=== PATIENT | female | born 1985 | race Caucasian/White ===

== ENCOUNTER 2017-08-24 19:37 | Inpatient (IN) | payer BC ==
[~2017-08-24 19:37] MED LIST: HYDROcodone/Acetaminophen 5/325 mg Tablet PO PRN; Ibuprofen 800 MG TAB PO PRN; LR / Pitocin 40 units/1000 ml 1,000 ML IV PRN; Lidocaine 1% (PF) 30 ML VIAL SC PRN; Misoprostol 200 MCG TAB PR PRN; Ondansetron HCl/PF 4 MG/2 ML Vial IVP PRN; Promethazine HCl 25 MG/ML VIAL IM PRN; Zolpidem Tartrate 5 MG TAB PO PRN
[2017-08-24 20:15] VITALS: BMI 41.8
[2017-08-24] MEDS: Lactated Ringer's 1,000 ML IV SCH (20:40)
[2017-08-24] MEDS: Misoprostol 100 MCG TAB VAG SCH ×2 (20:45→23:50)
[2017-08-24 21:15] LABS: Hematocrit 33.8 % (36.0-47.0); Mean Platelet Volume 9.6 fL (7.4-10.4); Red Blood Cell (RBC) Count 3.62 mill/uL (4.20-5.40); White Blood Cell (WBC) Count 10.1 thou/uL (4.8-10.8)
[2017-08-24 21:58] LABS: ALT (SGPT) 17 U/L (8-55); AST (SGOT) 15 U/L (5-34); Alkaline Phosphatase 198 U/L (40-150); Anion Gap 15 mmol/L (10-20); BUN (Urea Nitrogen) 12 mg/dL (7.0-18.7); Bilirubin, Total 0.4 mg/dL (0.2-1.2); Calc. Creatinine Clearance 189 mL/min (70-130); Calcium 8.6 mg/dL (7.8-10.44); Carbon Dioxide 19 mmol/L (22-29); Chloride 106 mmol/L (98-107); Estimated GFR-MDRD 90; Protein, Total 5.3 g/dL (6.0-8.3)
[2017-08-25] MEDS: Misoprostol 100 MCG TAB VAG SCH ×3 (05:15→23:21)
[2017-08-25] MEDS ORDERED: Fentanyl 100 MCG/2 ML VIAL ONE (08:41)
[2017-08-25] MEDS ORDERED: Fentanyl 4 mcg/Marc 0.1% Cadd 100 ML ONE (08:44)
[2017-08-25] MEDS: Lactated Ringer's 1,000 ML IV SCH ×3 (09:00→19:41)
[2017-08-25] MEDS: LR 500 ML/Oxytocin 10 units 500 ML IV SCH ×2 (09:30→19:41)
[2017-08-25] MEDS ORDERED: Eucerin (Mineral Oil/Petrolatum,White) 30 gm Jar TOP PRN (14:14)
[2017-08-25] MEDS ORDERED: Naloxone HCl 0.4 mg/ml Vial IVP PRN ×2 (14:14)
[2017-08-25] MEDS ORDERED: Acetaminophen 325 MG TAB PO PRN (14:14)
[2017-08-25] MEDS ORDERED: diphenhydrAMINE HCl 50 MG/ML 1 ML VIAL IVP PRN (14:14)
[2017-08-25] MEDS ORDERED: Ondansetron HCl/PF 4 MG/2 ML Vial IVP PRN (14:14)
[2017-08-25] MEDS ORDERED: Lactated Ringer's 500 ML IV PRN (14:14)
[2017-08-25] MEDS ORDERED: ePHEDrine/0.9% NaCl/PF SYRINGE 50 mg/10 ml SLOW IVP PRN (14:14)
[2017-08-25] MEDS ORDERED: Promethazine HCl 25 MG/ML VIAL IM PRN (14:14)
[2017-08-25] MEDS ORDERED: Communication Order-Pharmacy FS SCH (14:15)
[2017-08-25] MEDS: Fentanyl 4mcg/Marcaine 0.1% Cassette 100 ML EPIDURAL SCH ×2 (15:47→19:40)
[2017-08-25] MEDS ORDERED: Bisacodyl 10 MG SUPP PR PRN (23:44)
[2017-08-25] MEDS ORDERED: diphenhydrAMINE HCl 25 MG CAP PO PRN (23:44)
[2017-08-25] MEDS ORDERED: Lanolin Ointment 7 GM TUBE TOP PRN (23:44)
[2017-08-25] MEDS ORDERED: Benzocaine/Menthol 20-0.5% 60 ML CAN TOP PRN (23:44)
[2017-08-25] MEDS ORDERED: Preparation H Ointment 28 GM TUBE PR PRN (23:44)
[2017-08-25] MEDS ORDERED: LR / Pitocin 40 units/1000 ml 1,000 ML IV SCH (23:45)
[2017-08-26] MEDS: traMADol HCl 50 MG TAB PO PRN ×3 (01:43→21:21)
[2017-08-26] MEDS: Misoprostol 100 MCG TAB VAG SCH (01:43)
[2017-08-26] MEDS: Ibuprofen 800 MG TAB PO SCH ×3 (04:59→20:30)
--- NOTE | 2017-08-26 07:30 | PDOC.PP ---
Post Progress Note Post Day #: 1 Flatus: yes Ambulation: yes Vital Signs (12 hours) Temp Pulse Resp BP Pulse Ox 08/26/17 04:00 98.5 F 95 18 08/26/17 03:45 98.5 F 95 18 126/58 L 08/26/17 03:00 98.0 F 98 16 126/51 L 08/26/17 02:00 98.0 F 100 16 130/64 08/25/17 19:42 98.4 F 89 22 H 99 Weight Weight 244 lb - Physical Examination General: NAD Cardiovascular: no m/r/g, RRR Respiratory: clear to ausculation bilateral Abdominal: + bowel sounds, lochia, no distention, appropriately TTP Result Diagrams: 08/24/17 20:35 08/24/17 20:36 Additional Labs: Post Labs Blood Type O NEGATIVE 08/24/17 20:35 Hep Bs Antigen Non-Reactive S/CO (NonReactive) 08/24/17 20:35 - Assessment/Plan post 0-1 routine care. d/c andrew mejia am. anticipate d/c 08/27.
[2017-08-26] MEDS: Ferrous Sulfate 325 MG TAB PO SCH ×2 (07:42→15:15)
[2017-08-26] MEDS: Prenatal Vitamin 1 TAB PO SCH (07:43)
[2017-08-26] MEDS: Docusate (Surfak) 240 MG CAP PO SCH ×2 (07:44→20:30)
[2017-08-26] MEDS ORDERED: Adacel (T-DAP) 0.5 ML VIAL IM ONE (09:00)
[2017-08-26] MEDS: Milk Of Magnesia 30 ML UDCUP PO PRN (20:30)
[2017-08-27] MEDS: Ibuprofen 800 MG TAB PO SCH ×3 (05:08→21:04)
[2017-08-27] MEDS: traMADol HCl 50 MG TAB PO PRN ×3 (05:08→17:43)
--- NOTE | 2017-08-27 08:16 | PDOC.PP ---
Post Progress Note Post Day #: 2-baby in NICU for low blood sugars PO intake tolerated: yes Flatus: yes Ambulation: yes Vital Signs (12 hours) Temp Pulse Resp BP 08/27/17 00:00 97.7 F 89 20 106/54 L Weight Weight 244 lb - Physical Examination General: NAD Cardiovascular: no m/r/g, RRR Respiratory: clear to ausculation bilateral Abdominal: + bowel sounds, lochia, no distention, appropriately TTP Result Diagrams: 08/24/17 20:35 08/24/17 20:36 Additional Labs: Post Labs Blood Type O NEGATIVE 08/24/17 20:35 Hep Bs Antigen Non-Reactive S/CO (NonReactive) 08/24/17 20:35 - Assessment/Plan very sore in vagina. Hurts to urinate. hemorrhoids hurt. sitz baths/local perineal care d/c in am
[2017-08-27] MEDS: Ferrous Sulfate 325 MG TAB PO SCH ×2 (08:49→17:10)
[2017-08-27] MEDS: Docusate (Surfak) 240 MG CAP PO SCH ×2 (08:50→21:04)
[2017-08-27] MEDS: Prenatal Vitamin 1 TAB PO SCH (08:50)
[2017-08-27] MEDS: Milk Of Magnesia 30 ML UDCUP PO PRN (21:04)
[2017-08-28] MEDS: traMADol HCl 50 MG TAB PO PRN ×3 (00:15→13:00)
[2017-08-28 01:15] VITALS: TEMP 98.2
[2017-08-28] MEDS: Ibuprofen 800 MG TAB PO SCH ×2 (06:13→15:01)
--- NOTE | 2017-08-28 08:18 | PDOC.PP ---
Post Progress Note Post Day #: 3. baby out of nicu. feeling better today PO intake tolerated: yes Flatus: yes Ambulation: yes Vital Signs (12 hours) Temp Pulse Resp BP 08/28/17 00:00 98.2 F 92 20 126/78 Weight Weight 244 lb - Physical Examination General: NAD Cardiovascular: no m/r/g, RRR Respiratory: clear to ausculation bilateral Abdominal: + bowel sounds, lochia, no distention, appropriately TTP Result Diagrams: 08/24/17 20:35 08/24/17 20:36 Additional Labs: Post Labs Blood Type O NEGATIVE 08/24/17 20:35 Hep Bs Antigen Non-Reactive S/CO (NonReactive) 08/24/17 20:35 - Assessment/Plan post day 3 perineal pain improved d/c home f/u 6 weeks
[2017-08-28] MEDS: Docusate (Surfak) 240 MG CAP PO SCH (08:39)
[2017-08-28] MEDS: Prenatal Vitamin 1 TAB PO SCH (08:39)
[2017-08-28] MEDS: Ferrous Sulfate 325 MG TAB PO SCH (08:39)
[2017-08-28 08:51] VITALS: BP 133/82
[2017-08-28] MEDS ORDERED: Bupivacaine 0.25% 10 ML VIAL ONE (14:41)
[2017-08-28] MEDS ORDERED: Lidocaine 2% PF 10 ML AMP (For Epidural Use) ONE (14:41)
== END 2017-08-28 16:15 | disposition home or self-care (01) | DRG 775 ==
LOC: L&D 19:37 → 3SW 08-26 01:48
PROVIDERS: ADMIT Obstetrics & Gynecology; ATTEND Obstetrics & Gynecology
PROC: 10D07Z6 Extraction of Products of Conception, Vacuum, Via Natural or Artificial Opening (ICD-10-PCS; principal; 2017-08-25)
PROC: 0KQM0ZZ Repair Perineum Muscle, Open Approach (ICD-10-PCS; 2017-08-25)
PROC: 10907ZC Drainage of Amniotic Fluid, Therapeutic from Products of Conception, Via Natural or Artificial Opening (ICD-10-PCS; 2017-08-25)
PROC: 3E0P7VZ Introduction of Hormone into Female Reproductive, Via Natural or Artificial Opening (ICD-10-PCS; 2017-08-25)
DX: O63.1 Prolonged second stage (of labor) (principal); E03.9 Hypothyroidism, unspecified; O69.1XX0 Labor and delivery complicated by cord around neck, with compression, not applicable or unspecified; O70.1 Second degree perineal laceration during delivery; O75.81 Maternal exhaustion complicating labor and delivery; Z3A.39 39 weeks gestation of pregnancy; Z37.0 Single live birth; O99.284 Endocrine, nutritional and metabolic diseases complicating childbirth
CPT/HCPCS: 80053; 81003; 85027; 86780; 87340; J2001; J2405; J3010; J7120; S0020

== ENCOUNTER 2018-11-25 14:59 | Day surgery (SDC) | payer BC ==
[2018-11-25 15:36] VITALS: BP 127/77; TEMP 98.8
[2018-11-25 15:37] VITALS: BMI 38.4
--- NOTE | 2018-11-25 16:14 | PDOC.LDHP ---
Labor and Delivery H&P Chief complaint: other (Right back discomfort at 23 weeks 1 day) HPI: [facility] of [facility] Location: Triage EGA: 23 weeks 1 day HPI: 33 yo (operative vaginal delivery) now at 23 weeks 1 day with lower right back pain. No VB, no LOF, good FM. Some frequency of urination, no real dysuria. No N/V. review of Systems: Complete ROS completed and as per HPI Current gestational age (weeks): 23 (1 day) Due date: 03/23/19 Dating criteria: last menstrual period Grav: 3 Para: 1 OB History Details: Operative vaginal delivery Current complications: none Abnormal US findings: No Current medications: pre- vitamins Previous surgical history: other (Rt ear, T&A) Allergies/Adverse Reactions: Allergies Allergy/AdvReac Type Severity Reaction Status Date / Time No Known Allergies Allergy Verified 08/24/17 20:16 - Physical Exam Vital signs reviewed and normal: yes (afebrile; BP 125/77) General: NAD Heart: RRR Lungs: CTAB Abdomen: gravid Extremeties: no edema Maben contractions every: FHTs by doppler 140s, no contractions noted - Assessment Urinary fequency and possible right lower back pain...eval for stone or pyelo ( no overt CVAT, and afebrile): Plan: 1. Cath UA 2. IVFs 3. CBC and CMP 4. I have ordered a rigth renal sono with bladder jet eval 5. No evidence PTL at this time Follow labs and eval again after tests return
[2018-11-25] MEDS ORDERED: Lactated Ringer's 1,000 ML IV SCH (16:15)
[2018-11-25 16:39] LABS: #Lymphocytes 1.1 thou/uL (1.20-3.40); #Monocytes 0.4 thou/uL (0.11-0.59); #Neutrophils 9.4 thou/uL (1.40-6.50); %Basophils 0.1 % (0.0-1.0); %Eosinophils 0.4 % (0.0-10.0); %Lymphocytes 10.3 % (21.0-51.0); %Monocytes 3.6 % (0.0-10.0); %Neutrophils 85.6 % (42.0-75.0); Hemoglobin 12.6 g/dL (12.0-16.0); Mean Corpuscular HGB CONC 35.5 g/dL (32.0-36.0); Mean Corpuscular Hemoglobin 32.7 pg (27.0-31.0); Mean Corpuscular Volume 92.2 fL (78.0-98.0); Mean Platelet Volume 9.7 fL (7.4-10.4); Platelet Count 146 thou/uL (130-400); RBC Distribution Width 12.6 % (11.5-14.5); Red Blood Cell (RBC) Count 3.85 mill/uL (4.20-5.40); White Blood Cell (WBC) Count 10.9 thou/uL (4.8-10.8)
[2018-11-25 16:39] LABS: Bilirubin Negative (Negative); Blood, Urine Large (Negative); Clarity CLEAR (Clear); Glucose, Urine (Dipstick) Negative (Negative); Leukocyte Trace (Negative); Nitrite Negative (Negative); Protein, Urine (Dipstick) Negative (Neg-Trace); Specific Gravity, Urine 1.005 (1.002-1.036); Urobilinogen 0.2 mg/dL (0.2-1.0)
[2018-11-25 16:41] LABS: Bacteria/HPF None Seen HPF (None Seen); Hyaline Casts/LPF 0-3 HYALINE CAST LPF (0-3 Hyaline); Pathc Cast-AUWi Flag 0.87 (0-2.49); Squamous Epithelial 0-3 HPF (0-3); WBC/HPF 0-3 HPF (0-3)
[2018-11-25 16:50] LABS: Renal Epithelial None Seen HPF (0-3); Transitional Epithelial NONE SEEN HPF (0-3); Urine Culture Reflex No No
[2018-11-25 16:59] LABS: ALT (SGPT) 15 U/L (8-55); AST (SGOT) 20 U/L (5-34); Albumin 3.7 g/dL (3.5-5.0); Alkaline Phosphatase 67 U/L (40-150); Anion Gap 16 mmol/L (10-20); BUN (Urea Nitrogen) 5 mg/dL (7.0-18.7); Bilirubin, Total 0.3 mg/dL (0.2-1.2); Calc. Creatinine Clearance 182 mL/min (70-130); Carbon Dioxide 18 mmol/L (22-29); Chloride 106 mmol/L (98-107); Estimated GFR-MDRD Greater than 90; Globulin 2.3 g/dL (2.4-3.5); Glucose 107 mg/dL (70-105); Potassium 3.6 mmol/L (3.5-5.1); Sodium 136 mmol/L (136-145)
--- NOTE | 2018-11-25 17:38 | PDOC.EVN ---
Event Note - Event Note Event Note: UA with large blood in urine, CBC and CMP ok No evidence of TUT except for the blood Sono was ok with jet noted Now feels better after IVF, maybe was small stone. No evidence UTI...ok for outpatient care with macrobid due to frequency and large blood
--- NOTE | 2018-11-25 18:19 | ULT ---
RENAL ULTRASOUND WITH AVILEZ SCALE AND DOPPLER COLOR FLOW IMAGIN11/25/18 INDICATION: patient with right flank pain. FINDINGS: Sonographic evaluation of the kidneys performed which reveals no evidence of overt hydronephrosis. No discrete, shadowing renal calculus is seen. The urinary bladder is grossly unremarkable. Doppler color flow utilized for evaluation of ureteral jets which are demonstrated. IMPRESSION: No overt hydronephrosis of either kidney. POS: [facility]
== END 2018-11-25 17:55 | disposition home or self-care (01) ==
LOC: ERS 14:59 → L&D/OP 15:07
PROVIDERS: ATTEND Obstetrics & Gynecology
DX: O99.89 Other specified diseases and conditions complicating pregnancy, childbirth and the puerperium (principal); M54.5 Low back pain; R31.9 Hematuria, unspecified; Z3A.23 23 weeks gestation of pregnancy; Z79.899 Other long term (current) drug therapy
CPT/HCPCS: 51701; 76770; 80053; 81001; 85025; 87086; 96360; 96361; 99282; A4353

== ENCOUNTER 2019-03-20 19:42 | Inpatient (IN) | payer BC ==
--- NOTE | 2019-03-20 19:54 | PDOC.FPROB ---
FMR OB H&P: HPI - History of Present Illness Chief Complaint: contractions History of Present Illness: 34 yo at 39.4 wk by LMP/1T US. Presents with CC of CTx that started at 0800 today. Have become more frequent and painful over the course of the day. Now occurring every 2-3 min. No LOF or fever/chills. Was 1 cm dilated in office last week. Primary Care Physician: Dr. Briones FMR OB H&P: Current - Care : 2 Para: 1001 Gestational age: 39.4 wk Due date: 03/23/19 Dating Criteria: LMP/1T US. Course/Complications: well controlled hypothyroidism. - OB Labs Blood type: O RH: negative Antibody Screen: negative HIV: negative RPR: negative HepBsAg: negative Rubella: immune Quad screen: negative Urine drug screen: not done Gonorrhea: negative Chlamydia: negative Pap Smear: performed 01/15/19. no records available. 1 hour gtt: 78 GBS: negative H&H: 12.9/39.1 Platelets: 131 - First Trimester Ultrasound First trimester: normal per documentation but no report available. - Anatomy Survey Anatomy survey: normal per documentation but no report available. FMR OB H&P: History - Past Medical History PMH: hypothyroidism, asthma, cold sores - OB History OB History: prior vacuum assisted vaginal delivery at 39 wk. - MATHEMATICS LECTURER History MATHEMATICS LECTURER History: none. - Surgical History Sx History: laparascopy, tonsillectomy, ACL repair - Social History Social History: no E/T/D - Family History Family History: unremarkable FMR OB H&P: Medications - Current Home Medications: Medication Instructions Recorded Confirmed Type Levothyroxine Sodium 75 mcg PO DAILY 08/24/17 03/20/19 History 21/Iron Fu/Folic Acid 1 tablet PO DAILY 08/24/17 03/20/19 History [ Complete Caplet] Albuterol Sulfate [Ventolin HFA] 2 puff INH Q6HR PRN 11/25/18 03/20/19 History Beclomethasone Dipropionate [Qvar 2 puff INH BID 11/25/18 03/20/19 History Redihaler] Allergies/Adverse Reactions: Allergies Allergy/AdvReac Type Severity Reaction Status Date / Time shellfish derived Allergy Verified 03/20/19 20:36 FMR OB H&P: ROS - Review of Systems General: denies: fever/chills, weight/appetite/sleep changes Eyes: denies: eye pain, vision changes ENT: denies: nasal congestion, ear pain, trouble with swallowing Cardiovascular: denies: chest pain, orthopnea Respiratory: denies: cough, congestion Gastrointestinal: denies: abdominal pain, diarrhea, constipation Genitourinary (Female): reports: contractions. denies: incontinence, dysuria Musculoskeletal: denies: pain, stiffness Neurologic: denies: numbness, headache Integumentary: denies: itching, other Breast: denies: lumps, bumps Endocrine: denies: cold intolerance, heat intolerance Hematologic/Lymphatic: denies: prolonged or excessive bleeding, enlarged lymph nodes Psychological: denies: depression, anxiety FMR OB H&P: Vital Signs - Maternal Vital signs: BP 126/71, Pulse 88, resp 20, T 98.6F. - Heart Tones Baseline: 140 Variability: moderate Acceleration: present Deceleration: absent Category: category 1 Iaeger contractions every: 2-3 min. FMR OB H&P: Physical Exam - Physical Exam General: awake, alert and oriented, other (painful contractions.) HEENT: normocephalic and atraumatic, MMM, conjunctiva clear Neck: FROM, trachea midline Heart: RRR, normal S1/S2 General: CTAB, no respiratory distress Abdomen: soft, gravid, non-tender Musculoskeletal: normal gait and station, no atrophy Neurological: no tremor, no focal deficit Skin: no rash, good tugor Lymphatic: no unusual bruising or bleeding, no purpura Psychiatric: intact recent and remote memory, good judgement and insight - Pelvic Exam Vulva: normal hair distribution, no discharge Cervix: no masses SVE: /-2 Membranes: intact - arom by dr palafox clear fluid Presentation: vertex Estimated Weight: 7 lbs FMR OB H&P: Results - Labs Lab results: pending. FMR OB H&P: A/P - Problem List (1) Current Visit: Yes Status: Acute (2) Gestational thrombocytopenia without hemorrhage in third trimester Current Visit: Yes Status: Acute Code(s): O99.113 - OTH DIS OF BLD/BLD-FORM ORG/IMMUN MECHNSM COMP PREG, 3RD TRI; D69.6 - THROMBOCYTOPENIA, UNSPECIFIED (3) Hypothyroidism affecting in third trimester Current Visit: Yes Status: Acute Code(s): O99.283 - ENDO, NUTRITIONAL AND METAB DISEASES COMP PREG, THIRD TRI; E03.9 - HYPOTHYROIDISM, UNSPECIFIED (4) Rh negative status during in third trimester Current Visit: Yes Status: Acute Code(s): O26.893 - OTH RELATED CONDITIONS, THIRD TRIMESTER; Z67.91 - UNSPECIFIED BLOOD TYPE, RH NEGATIVE Disposition: - Latent labor: will admit to L&D for expectant management. Epidural upon patient request. Routine labs ordered. Pitocin for augmentation if needed - GBS negative - Gestational thrombocytopenia: mild, repeat CBC - RH negative: Rhogam - Hypothyoridism: well controlled outpatient, continue synthroid. Discussion: Date/Time: 03/20/191951 This H&P was discussed with Dr. Palafox who agree with the above documentation and plan.
[2019-03-20] MEDS ORDERED: Ibuprofen 800 MG TAB PO PRN (20:18)
[2019-03-20] MEDS ORDERED: Lidocaine 1% (PF) 30 ML VIAL SC PRN ×2 (20:18→20:55)
[2019-03-20] MEDS ORDERED: Promethazine HCl 25 MG/ML VIAL IM PRN ×2 (20:18→21:41)
[2019-03-20] MEDS ORDERED: NS / Oxytocin 40 units/1000ml 1,000 ML IV PRN ×2 (20:18→20:55)
[2019-03-20] MEDS ORDERED: Acetaminophen 500 MG TAB PO PRN (20:18)
[2019-03-20] MEDS ORDERED: Diphenoxylate HCl/Atropine Tablet PO PRN (20:18)
[2019-03-20] MEDS ORDERED: Carboprost 250 MCG/ML AMP IM PRN (20:18)
[2019-03-20] MEDS ORDERED: Ondansetron PF 4 MG/2 ML Vial IVP PRN ×2 (20:18→21:41)
[2019-03-20] MEDS ORDERED: Methylergonovine 0.2 MG/ML VIAL IM PRN (20:18)
[2019-03-20] MEDS ORDERED: Docusate 100 MG CAP PO PRN (20:18)
[2019-03-20] MEDS ORDERED: Misoprostol 200 MCG TAB PR PRN (20:18)
[2019-03-20] MEDS ORDERED: Butorphanol Tartrate 1 MG/ML VIAL SLOW IVP PRN (20:18)
[2019-03-20] MEDS ORDERED: HYDROcodone/Acetaminophen 5/325 mg Tablet PO PRN ×2 (20:18)
[2019-03-20 20:21] VITALS: BMI 40.1
[2019-03-20] MEDS ORDERED: Lactated Ringer's 1,000 ML IV SCH ×2 (20:30)
[2019-03-20] MEDS ORDERED: Fentanyl 4 mcg/Bup 0.1% Cadd 100 ML ONE (20:42)
[2019-03-20 20:49] LABS: Hemoglobin 13.6 g/dL (12.0-16.0); Mean Corpuscular Hemoglobin 32.3 pg (27.0-31.0); Mean Corpuscular Volume 92.3 fL (78.0-98.0); Platelet Count 138 thou/uL (130-400); RBC Distribution Width 12.2 % (11.5-14.5); Red Blood Cell (RBC) Count 4.21 mill/uL (4.20-5.40); White Blood Cell (WBC) Count 10.8 thou/uL (4.8-10.8)
[2019-03-20] MEDS ORDERED: NS w/ Oxytocin 10 units 500 ML IV SCH (21:00)
[2019-03-20 21:23] LABS: Syphilis Antibody Nonreactive (Nonreactive); Syphilis Antibody Index 0.01 S/CO (<1.00 Non-Reactive)
[2019-03-20] MEDS ORDERED: ePHEDrine/0.9% NaCl/PF SYRINGE 50 mg/10 ml SLOW IVP PRN (21:41)
[2019-03-20] MEDS ORDERED: diphenhydrAMINE 50 MG/ML VIAL IVP PRN (21:41)
[2019-03-20] MEDS ORDERED: Eucerin (Mineral Oil/Petrolatum,White) 30 gm Jar TOP PRN (21:41)
[2019-03-20] MEDS ORDERED: Naloxone HCl 0.4 mg/ml Vial IVP PRN ×2 (21:41)
[2019-03-20] MEDS ORDERED: Acetaminophen 325 MG TAB PO PRN (21:41)
[2019-03-20] MEDS ORDERED: Lactated Ringer's 500 ML IV PRN (21:41)
[2019-03-20] MEDS ORDERED: Communication Order-Pharmacy FS SCH (21:45)
[2019-03-20] MEDS ORDERED: Fentanyl 4 mcg/Bupivacaine 0.1% Cassette 100 ML EPIDURAL SCH (21:45)
[2019-03-20 23:05] LABS: HBSAg Index 0.43 S/CO (0-0.99); Hep B Surf Ag Non-Reactive S/CO (NonReactive)
[2019-03-21] MEDS ORDERED: Lidocaine 1% (PF) 30 ML VIAL ONE (02:07)
[2019-03-21] MEDS ORDERED: NS / Oxytocin 40 units/1000ml 1,000 ML ONE (02:07)
[2019-03-21] MEDS ORDERED: Preparation H Ointment 28 GM TUBE PR PRN (02:27)
[2019-03-21] MEDS ORDERED: Milk Of Magnesia 30 ML UDCUP PO PRN (02:27)
[2019-03-21] MEDS ORDERED: traMADol HCl 50 MG TAB PO PRN (02:27)
[2019-03-21] MEDS ORDERED: diphenhydrAMINE 25 MG CAP PO PRN (02:27)
[2019-03-21] MEDS ORDERED: Benzocaine-Menthol 82.5 ML CAN TOP PRN (02:27)
[2019-03-21] MEDS ORDERED: Bisacodyl 10 MG SUPP PR PRN (02:27)
[2019-03-21] MEDS ORDERED: Lanolin Ointment 7 GM TUBE TOP PRN (02:27)
[2019-03-21] MEDS ORDERED: NS / Oxytocin 40 units/1000ml 1,000 ML IV SCH (02:30)
--- NOTE | 2019-03-21 02:35 | PDOC.OPDEL ---
OB Operative/Delivery Note Delivery Dr/Surgeon: Anali Pre-Delivery Diagnosis: active labor Procedure/Post Delivery Dx: spontaneous vaginal delivery Weeks gestation: 39 Anesthesia: epidural - Findings A Sex: female Weight: 6 lb 1 oz - 1 min: 7 - 5 min: 8 - Additional Findings/Plan Placenta delivered: spontaneous Repaired Obstetrical Laceration: 2nd degree Estimated blood loss: 100ml Compilations/Other Findings: Nuchal cord x 1 --tight. Clamped and cut Post delivery plan: routine recovery
[2019-03-21] MEDS: Ibuprofen 800 MG TAB PO SCH ×3 (06:21→21:36)
[2019-03-21] MEDS: traMADol HCl 50 MG TAB PO PRN ×2 (06:52→19:01)
[2019-03-21] MEDS: Mometasone 100 MCG HFA INHALER INH SCH ×2 (07:30→19:56)
[2019-03-21] MEDS ORDERED: Adacel (T-DAP) 0.5 ML SYRINGE IM ONE (09:00)
[2019-03-21] MEDS: Docusate Calcium (SURFAK) 240 MG CAP PO SCH ×2 (10:13→21:35)
[2019-03-21] MEDS: Prenatal Vitamin 1 TAB PO SCH (10:13)
[2019-03-21] MEDS: Ferrous Sulfate 325 MG TAB PO SCH ×2 (10:15→19:03)
[2019-03-21] MEDS ORDERED: Bupivacaine HCl 0.25%/Epi 0.0005/PF 10 ML VIAL FS ONE (11:11)
[2019-03-22] MEDS: traMADol HCl 50 MG TAB PO PRN ×4 (00:34→21:11)
[2019-03-22] MEDS: Ibuprofen 800 MG TAB PO SCH ×3 (05:35→21:10)
[2019-03-22] MEDS: Mometasone 100 MCG HFA INHALER INH SCH ×2 (07:36→19:15)
--- NOTE | 2019-03-22 07:53 | PDOC.PP ---
Post Progress Note Post Day #: 2 PO intake tolerated: yes Flatus: yes Ambulation: yes Vital Signs (12 hours) Temp Pulse Resp BP Pulse Ox 03/21/19 20:00 97.9 F 79 18 121/71 98 03/21/19 19:56 96 Weight Weight 234 lb - Physical Examination Abdominal: no distention, appropriately TTP Extremities: negative homans (B) Result Diagrams: 03/20/19 20:39 Additional Labs: Post Labs Blood Type O NEGATIVE 03/20/19 20:39 Hep Bs Antigen Non-Reactive S/CO (NonReactive) 03/20/19 20:39 - Assessment/Plan Post day 1-2. Doing well. Discharge home. Follow up in 6 weeks.
[2019-03-22] MEDS: Prenatal Vitamin 1 TAB PO SCH (08:00)
[2019-03-22] MEDS: Docusate Calcium (SURFAK) 240 MG CAP PO SCH ×2 (08:00→21:10)
[2019-03-22] MEDS: Ferrous Sulfate 325 MG TAB PO SCH ×2 (08:04→18:24)
[2019-03-23] MEDS: traMADol HCl 50 MG TAB PO PRN (05:42)
[2019-03-23] MEDS: Ibuprofen 800 MG TAB PO SCH (05:42)
[2019-03-23] MEDS: Mometasone 100 MCG HFA INHALER INH SCH (06:44)
[2019-03-23 08:25] VITALS: BP 113/81; TEMP 98.1
[2019-03-23] MEDS: Docusate Calcium (SURFAK) 240 MG CAP PO SCH (09:09)
[2019-03-23] MEDS: Prenatal Vitamin 1 TAB PO SCH (09:09)
[2019-03-23] MEDS: Ferrous Sulfate 325 MG TAB PO SCH (10:16)
== END 2019-03-23 11:10 | disposition home or self-care (01) | DRG 807 ==
LOC: L&D/OP 19:42 → L&D 20:56 → 3SW 03-21 04:52
PROVIDERS: ADMIT Obstetrics & Gynecology; ATTEND Obstetrics & Gynecology
PROC: 10E0XZZ Delivery of Products of Conception, External Approach (ICD-10-PCS; principal; 2019-03-21)
PROC: 0KQM0ZZ Repair Perineum Muscle, Open Approach (ICD-10-PCS; 2019-03-21)
PROC: 3E0234Z Introduction of Serum, Toxoid and Vaccine into Muscle, Percutaneous Approach (ICD-10-PCS; 2019-03-22)
DX: O99.284 Endocrine, nutritional and metabolic diseases complicating childbirth (principal); Z37.0 Single live birth; O99.113 Other diseases of the blood and blood-forming organs and certain disorders involving the immune mechanism complicating pregnancy, third trimester; O69.1XX0 Labor and delivery complicated by cord around neck, with compression, not applicable or unspecified; E03.9 Hypothyroidism, unspecified; O99.12 Other diseases of the blood and blood-forming organs and certain disorders involving the immune mechanism complicating childbirth; D69.6 Thrombocytopenia, unspecified; O70.1 Second degree perineal laceration during delivery; Z3A.39 39 weeks gestation of pregnancy; Z23 Encounter for immunization
CPT/HCPCS: 36415; 51702; 85027; 86780; 86850; 86870; 86900; 86901; 87340; 90471; 90732; 99285; G0009; J2001; Q0163

== ENCOUNTER 2020-05-10 09:00 | Outpatient (CLI) | payer BC | END 2020-05-10 09:01 | disposition home or self-care (01) | LOC: DTY/OP 09:00 | PROVIDERS: ATTEND Specialist | DX: Z01.818 Encounter for other preprocedural examination (principal); E66.01 Morbid (severe) obesity due to excess calories | CPT/HCPCS: 97802 ==

== ENCOUNTER 2020-06-02 12:30 | Inpatient (IN) | payer BC ==
[2020-06-08 12:05] VITALS: BMI 40.3
[2020-06-15] MEDS ORDERED: Acetaminophen 500 MG TAB ONE (06:09)
[2020-06-15] MEDS ORDERED: Ketorolac Tromethamine 30 MG/ML VIAL ONE (06:10)
[2020-06-15] MEDS ORDERED: Bupivacaine 0.25% HCL 30 ML VIAL ONE (06:41)
[2020-06-15] MEDS ORDERED: Lidocaine 1% w/Epinephrine 1:100K 20 ML VIAL ONE (06:41)
[2020-06-15] MEDS ORDERED: Fentanyl 250 MCG/5 ML VIAL ONE (07:05)
[2020-06-15] MEDS ORDERED: Midazolam HCl 2 mg/2 ml Vial ONE (07:05)
[2020-06-15] MEDS ORDERED: Scopolamine 1.5 mg/72 hour Patch ONE (07:17)
[2020-06-15] MEDS ORDERED: Albuterol Sulfate HFA (OR ONLY) ONE (07:22)
[2020-06-15] MEDS ORDERED: Morphine Sulfate 2 MG/ML SYRINGE SLOW IVP PRN (09:17)
[2020-06-15] MEDS ORDERED: Fentanyl 100 MCG/2 ML VIAL ONE (09:17)
[2020-06-15] MEDS ORDERED: HYDROmorphone 2 MG/ML VIAL SLOW IVP PRN (09:17)
[2020-06-15] MEDS ORDERED: Meperidine HCl/PF 25 MG/ML VIAL SLOW IVP PRN (09:17)
[2020-06-15] MEDS ORDERED: Ondansetron HCl/PF 4 MG/2 ML Vial IVP PRN (09:17)
[2020-06-15] MEDS ORDERED: PACU-Morphine 4MG/ML VIAL SLOW IVP PRN (09:17)
[2020-06-15] MEDS ORDERED: Promethazine HCl 25 MG/ML VIAL IM PRN ×2 (09:17→10:27)
[2020-06-15] MEDS ORDERED: PROPOFOL 200 MG/20 ML VIAL ONE (09:57)
[2020-06-15] MEDS ORDERED: Dexamethasone 20 MG/5 ML VIAL ONE (09:57)
[2020-06-15] MEDS ORDERED: PHENYLEPHRINE-NS 100 MCG/ML 10 ML SYRINGE ONE (09:57)
[2020-06-15] MEDS ORDERED: diphenhydrAMINE 50 MG/ML VIAL ONE (09:57)
[2020-06-15] MEDS ORDERED: Ondansetron PF 4 MG/2 ML Vial ONE (09:57)
[2020-06-15] MEDS ORDERED: Glycopyrrolate 0.2 MG/ML 5 ML SYRINGE ONE (09:57)
[2020-06-15] MEDS ORDERED: Rocuronium Bromide 10 MG/ML (10ML VIAL) ONE (09:57)
[2020-06-15] MEDS ORDERED: hydrALAZINE 20 MG/ML VIAL SLOW IVP PRN (10:27)
[2020-06-15] MEDS ORDERED: Morphine 4 MG/ML VIAL SLOW IVP PRN (10:27)
[2020-06-15] MEDS ORDERED: Dextrose 50% Abboject 50 ML SYRINGE SLOW IVP PRN (10:27)
[2020-06-15] MEDS ORDERED: diphenhydrAMINE 50 MG/ML VIAL IVP PRN (10:27)
[2020-06-15] MEDS ORDERED: Dextrose 5% in Water 1,000 ML IV PRN (10:27)
[2020-06-15] MEDS ORDERED: Morphine 2 MG/ML VIAL SLOW IVP PRN (10:27)
[2020-06-15] MEDS ORDERED: Ondansetron PF 4 MG/2 ML Vial IVP PRN (10:27)
[2020-06-15] MEDS ORDERED: Pantoprazole 40 MG VIAL IVP SCH (10:45)
[2020-06-15] MEDS: D5 1/2 NS w/20 mEq KCL 1,000 ML IV SCH ×3 (12:18→22:01)
[2020-06-15] MEDS: Ketorolac Tromethamine 30 MG/ML VIAL IVP SCH ×2 (12:19→18:22)
[2020-06-15 14:34] VITALS: TEMP 97.7
[2020-06-15] MEDS: Hydrocodone-Acetamin 15 ML UDCUP PO PRN (20:47)
[2020-06-15 20:49] VITALS: BP 115/78
[2020-06-15] MEDS ORDERED: Enoxaparin Sodium 40 MG/0.4 ML SYRINGE SC SCH (21:00)
[2020-06-16] MEDS: Ketorolac Tromethamine 30 MG/ML VIAL IVP SCH ×3 (00:15→11:31)
[2020-06-16 06:21] LABS: #Lymphocytes 1.1 thou/uL (1.20-3.40); #Monocytes 0.6 thou/uL (0.11-0.59); #Neutrophils 5.8 thou/uL (1.40-6.50); %Basophils 0.4 % (0.0-1.0); %Eosinophils 0.5 % (0.0-10.0); %Lymphocytes 14.3 % (21.0-51.0); %Monocytes 7.5 % (0.0-10.0); %Neutrophils 77.2 % (42.0-75.0); Hemoglobin 13.2 g/dL (12.0-16.0); Mean Corpuscular HGB CONC 32.3 g/dL (32.0-36.0); Mean Corpuscular Hemoglobin 31.5 pg (27.0-31.0); Mean Corpuscular Volume 97.5 fL (78.0-98.0); Mean Platelet Volume 10.4 fL (7.4-10.4); Platelet Count 142 thou/uL (130-400); RBC Distribution Width 11.3 % (11.5-14.5); White Blood Cell (WBC) Count 7.5 thou/uL (4.8-10.8)
[2020-06-16 06:44] LABS: Calcium 8.1 mg/dL (7.8-10.44); Chloride 109 mmol/L (98-107); Potassium 5.1 mmol/L (3.5-5.1); Sodium 133 mmol/L (136-145)
[2020-06-16 06:45] LABS: Glucose 99 mg/dL (70-105)
[2020-06-16 06:46] LABS: Carbon Dioxide 15 mmol/L (22-29)
[2020-06-16 06:48] LABS: Calc. Creatinine Clearance 182 mL/min (70-130); Estimated GFR-MDRD Greater than 90
[2020-06-16 06:49] LABS: BUN (Urea Nitrogen) 6 mg/dL (7.0-18.7)
[2020-06-16 06:54] LABS: Anion Gap 14 mmol/L (10-20)
[2020-06-16] MEDS ORDERED: Pantoprazole 40 MG VIAL IVP SCH (09:00)
--- NOTE | 2020-06-16 09:06 | OP ---
DATE OF PROCEDURE: 06/15/2020 PREOPERATIVE DIAGNOSIS: Morbid obesity. POSTOPERATIVE DIAGNOSIS: Morbid obesity. PROCEDURE PERFORMED: Laparoscopic vertical sleeve gastrectomy using the ViSiGi device. ANESTHESIA: General endotracheal. INDICATIONS: The patient is a 35-year-old white female. She has undergone preoperative evaluation and education, is felt to be an appropriate candidate for a sleeve gastrectomy. DESCRIPTION OF OPERATION: Informed consent was obtained. The patient was taken to the operating room where general endotracheal anesthesia was obtained with the patient in supine position. Abdomen was prepped with ChloraPrep and draped in sterile fashion. Local anesthetic was infiltrated and 5 mm supraumbilical incision was created through which Veress needle was passed to the peritoneal cavity and pneumoperitoneum established using carbon dioxide up to a pressure of 15 mmHg. A 5 mm trocar port was passed through this same incision. Laparoscopic camera was passed through this port. Under direct vision, 4 additional ports were placed including bilateral 5 mm subcostal ports, a 12 mm right paramedian port and a 15 mm left paramedian port. A 5 mm epigastric incision was created through which Nathansen retractor was passed into the abdominal cavity and used to retract the left lobe of the liver. The patient was placed into reverse Trendelenburg position. The ViSiGi device was advanced within the stomach and used to decompress this. The pylorus was identified and beginning 4 cm proximal to the pylorus, the omentum and vascular tissue along the greater curvature was divided using the LigaSure in an ascending fashion up to the angle of His. All posterior adhesions were mobilized. The short gastric vessels were carefully divided and then hemostasis was maintained using the LigaSure. Once this was completely mobilized, the ViSiGi was carefully positioned at the level of the pylorus and placed to suction, which was clearly defining the lesser curvature of the stomach. The gastrectomy was then performed using a series of fires of the [place] stapler using a green load followed by a gold load and a series of blue loads until completion of the gastrectomy. The ViSiGi along the lesser curvature was used as a size 36 bougie to guide in the gastric division. Care was taken to avoid narrowing the incisura or the gastroesophageal junction. The integrity of the staple line was then assessed by insufflating gas through the ViSiGi while irrigating along the staple line. There was no evidence of an air leak. There was no evidence of bleeding along the staple line. The resected stomach was then removed through the 15 mm port and the fascia was closed with 0 Vicryl suture using a GraNee needle. I then closed the 12 mm port also using the GraNee needle and 0 Vicryl suture. The Nathansen retractor was removed. All ports and instruments were removed under direct vision. All irrigant was aspirated. Pneumoperitoneum was carefully evacuated. 0.25% Marcaine with epinephrine was infiltrated into each port site. Skin edges approximated with 4-0 Monocryl subcuticular suture. Dermabond was placed externally. There were no complications. The patient tolerated the procedure well and was taken to recovery room in stable condition. FINDINGS: The patient had no intraabdominal adhesions. Her anatomy was typical. The operation was performed without any significant blood loss and without complication. Several hemoclips were placed along the gastric staple line. The patient tolerated the procedure well and was taken to recovery room in stable condition. Job ID: [id number]
[2020-06-16] MEDS: Hydrocodone-Acetamin 15 ML UDCUP PO PRN (10:07)
[2020-06-16] MEDS: D5 1/2 NS w/20 mEq KCL 1,000 ML IV SCH (10:52)
== END 2020-06-16 12:27 | disposition home or self-care (01) | DRG 621 ==
LOC: SURG A 06-15 05:58
PROVIDERS: ADMIT Specialist; ATTEND Specialist
PROC: 0DB64Z3 Excision of Stomach, Percutaneous Endoscopic Approach, Vertical (ICD-10-PCS; principal; 2020-06-15)
DX: E66.01 Morbid (severe) obesity due to excess calories (principal); Z68.41 Body mass index [BMI] 40.0-44.9, adult; E03.9 Hypothyroidism, unspecified; F41.9 Anxiety disorder, unspecified; J45.909 Unspecified asthma, uncomplicated; Z79.890 Hormone replacement therapy; Z79.51 Long term (current) use of inhaled steroids; Z79.899 Other long term (current) drug therapy
CPT/HCPCS: 36415; 80048; 85025; 87635; 88307; 88312; C9113; J0694; J1100; J1200; J1650; J1885; J2250; J2405; J2704; J3010; J3480; S0020; U0003

== ENCOUNTER 2020-06-12 07:18 | Outpatient (CLI) | payer BC, OTHER ==
[2020-06-13 12:04] LABS: SARS-CoV-2 MS2 Positive; SARS-CoV-2 N Gene Negative; SARS-CoV-2 S Gene Negative; SARS-CoV-2 by NAA Not Detected (NotDetected); SARS-CoV-2 orf1ab Negative
== END 2020-06-12 07:19 | disposition home or self-care (01) ==
LOC: LABBT 07:18
PROVIDERS: ATTEND Specialist
DX: Z01.812 Encounter for preprocedural laboratory examination (principal); Z11.59 Encounter for screening for other viral diseases; E66.01 Morbid (severe) obesity due to excess calories; Z68.41 Body mass index [BMI] 40.0-44.9, adult
CPT/HCPCS: 87635; U0003

== ENCOUNTER 2024-12-08 10:40 | Outpatient (CLI) | payer BC | END 2024-12-08 10:41 | disposition home or self-care (01) | LOC: BICULT 10:40 | PROVIDERS: ATTEND Obstetrics & Gynecology | DX: R92.8 Other abnormal and inconclusive findings on diagnostic imaging of breast (principal) ==